=== PATIENT | male | born 1945 | race Caucasian/White ===

== ENCOUNTER 2023-02-12 08:05 | Emergency (ER) | payer OTHER ==
[~2023-02-12] VITALS: Ht 175.3 cm; Wt 71.2 kg
[2023-02-12] MEDS ORDERED: CLIN150 PO (09:37)
[2023-02-12] MEDS ORDERED: CLIN300 PO (09:39)
[2023-02-12 09:46] VITALS: BP 124/84
== END 2023-02-12 09:48 | disposition home or self-care (01) ==
LOC: ER 08:05
DX: Z76.0 Encounter for issue of repeat prescription (principal); M70.22 Olecranon bursitis, left elbow; Z88.0 Allergy status to penicillin
CPT/HCPCS: 96372; 99281-25; A9270; J1885